=== PATIENT | female | born 1965 | race Caucasian/White ===

== ENCOUNTER 2017-01-29 18:37 | Emergency (ER) | payer SELFPAY ==
[~2017-01-29] VITALS: Ht 172.7 cm; Wt 61.3 kg
[2017-01-29 19:17] LABS: HEMATOCRIT 48.4 % (36.0-46.0); MCH 31.1 PG (29.0-34.0); MCHC 33.3 G/DL (30.0-36.0); MCV 93.4 FL (83-99); MEAN PLAT.VOLUME 10.6 uM^3 (9.5-12.4); PLATELET COUNT 185 K/uL (156-360); RBC DIS.WIDTH-SD 41.7 % (39-53); RED BLOOD COUNT 5.18 M/uL (3.80-5.20); WHITE BLOOD COUNT 11.7 K/uL (4.1-10.2)
[2017-01-29 19:21] LABS: ADD MIUA? NO; BILIRUBIN NEGATIVE; BLOOD NEGATIVE; COLOR YELLOW ((YELLOW)); GLUCOSE (STRIP) NEGATIVE; KETONES 5; LEUKOCYTES NEGATIVE; NITRITE NEGATIVE; PROTEIN (STRIP) 30; UCUL ADDED? NO; UROBILINOGEN 0.2 MG/DL (0.2-1.0)
[2017-01-29 19:26] LABS: CHLORIDE 107 mEq/L (99-109); POTASSIUM 4.5 mEq/L (3.7-5.4); SODIUM 143 mEq/L (136-147)
[2017-01-29 19:28] LABS: GLUCOSE 119 mg/dL (70-99)
[2017-01-29 19:29] LABS: ANION GAP 8 MEQ/L (2-14)
[2017-01-29 19:30] LABS: TOTAL BILIRUBIN 1.2 mg/dL (0.0-1.0)
[2017-01-29 19:31] LABS: ALKALINE PHOSPHATASE 63 IU/L (3-129)
[2017-01-29 19:33] LABS: UREA NITROGEN (BUN) 28 mg/dL (9-23)
[2017-01-29 19:34] LABS: GFR ESTIMATE (CALCULATED) > 59 mL/min/
[2017-01-29 19:35] LABS: LIPASE 21 U/L (1.0-51.0)
[2017-01-29] MEDS ORDERED: ZOFRAN4 MG PO (20:24)
[2017-01-29 21:12] VITALS: BP 113/85
== END 2017-01-29 21:14 | disposition home or self-care (01) ==
LOC: EME 18:37
PROVIDERS: Nurse Practitioner Family
DX: R11.2 Nausea with vomiting, unspecified (principal); Z87.442 Personal history of urinary calculi
CPT/HCPCS: 74177; 80053; 81003; 83690; 85027; 99281; 99285; J2405; J7030